=== PATIENT | female | born 1965 | race Caucasian/White ===

== ENCOUNTER → 2022-07-25 | Outpatient (CLI) | payer BC ==
[2022-07-25 18:56] LABS: HCT 44.4 % (37.2-46.3); HGB 15.5 g/dL (12.0-15.0); MCH 32.6 pg (27.0-32.0); MCHC 34.9 g/dL (32.0-37.0); MCV 93.3 fL (80.0-97.0); Mean Platelet Volume 10.2 fL (9.5-12.2); NRBC Per 100 WBC 0 /100 WBCS (0.0-0.0); Platelet Count 267 X 10*3/uL (140-440); RBC 4.76 X 10*6/uL (4.10-5.20); RDW 11.8 % (11.5-14.5); WBC 9.81 X 10*3/uL (4.50-10.00)
[2022-07-25 19:19] LABS: ALT 29 U/L (8-44); AST 26 U/L (13-35); African American GFR (CKD) 90.1 (60.0-200.0); Blood Urea Nitrogen 10.8 mg/dL (9.0-27.0); Carbon Dioxide 24.9 mmol/L (20.0-27.5); Chloride 102 mmol/L (96-109); Non-African American GFR(CKD) 77.7 (60.0-200.0); Potassium 4.4 mmol/L (3.5-5.5); Sodium 140 mmol/L (135-145)
[2022-07-26 09:18] LABS: Chol/HDL Ratio 2.56 Ratio; LDL Cholesterol,Calculated 64.8 mg/dL (0.0-131.0)
== END | disposition home or self-care (01) ==
LOC: LABPAT 07-17 08:30
PROVIDERS: ATTEND Internal Medicine
DX: Z01.812 Encounter for preprocedural laboratory examination (principal); I25.10 Atherosclerotic heart disease of native coronary artery without angina pectoris
CPT/HCPCS: 80051; 80061; 82565; 84450; 84460; 84520; 85027

== ENCOUNTER → 2022-07-25 | Outpatient (CLI) | payer BC | END | disposition home or self-care (01) | LOC: LABWHC1 07-17 08:28 | PROVIDERS: ATTEND Internal Medicine | DX: Z53.9 Procedure and treatment not carried out, unspecified reason (principal) ==

== ENCOUNTER 2022-08-01 08:56 | Day surgery (SDC) | payer BC ==
[2022-07-28 10:54] VITALS: BMI 30.7
[~2022-08-01 08:56] MED LIST: ALPRAZolam 0.25 MG TAB PO PRN; ALPRAZolam 0.5 MG TAB PO PRN; ASPIRIN 325 MG TAB PO ONE; ATORVASTATIN 80 MG TAB PO ONE; HEPARIN SODIUM,PORCINE 10,000 UNIT in SODIUM CHLORIDE 0.9% 1,000 ML IRRIGATION PRN; HEPARIN SODIUM,PORCINE 2,500 UNIT in SODIUM CHLORIDE 0.9% 250 ML IRRIGATION PRN; NITROGLYCERIN SL TABS 0.4 MG TAB SUBLINGUAL PRN; SODIUM CHLORIDE 0.9% 1,000 ML in EMPTY BAG 1 BAG IV SCH
[2022-08-01] MEDS ORDERED: ASPIRIN 325 MG TAB PO ONE (09:34)
[2022-08-01 09:42] VITALS: RESP 16; TEMP 98.1
[2022-08-01] MEDS ORDERED: VERAPAMIL 2.5 MG/ML 2 ML AMP ONE (10:18)
[2022-08-01] MEDS ORDERED: fentaNYL (PF) 50 MCG/ML 2 ML AMP ONE (10:23)
[2022-08-01] MEDS ORDERED: fentaNYL (PF) 50 MCG/ML 2 ML AMP IV ONE (10:37)
[2022-08-01] MEDS ORDERED: MIDAZOLAM 2 MG/2 ML VIAL IV ONE (10:37)
[2022-08-01] MEDS ORDERED: LIDOCAINE 1% INJ 10MG/ML (5 ML VIAL-PF) SQ ONE (10:38)
[2022-08-01] MEDS: VERAPAMIL SYRINGE (5 MG/10 ML) INTRAARTER ONE ×2 (10:41→10:44)
[2022-08-01] MEDS ORDERED: HEPARIN SODIUM 1,000 UN/ML (10ML VL) ONE (10:42)
[2022-08-01] MEDS ORDERED: HEPARIN SODIUM 1,000 UN/ML (10ML VL) IV ONE (10:47)
[2022-08-01] MEDS ORDERED: IOPAMIDOL-370 125ML BTL INJ ONE (10:53)
--- NOTE | 2022-08-01 11:06 | P.CARDCATH ---
Description of Procedure: PROCEDURES PERFORMED: Left heart catheterization, bilateral coronary angiography INDICATION: Abnormal stress test, history of CAD with PCI LAD CONSENT:I have discussed the risks, benefits and alternative therapies for the above-mentioned procedure and for both sedation/analgesia as well as necessary blood product administration, if indicated, as they pertain to this patient. The patient has indicated understanding and acceptance of the risks and procedures discussed. PROCEDURE: After the risks, benefits and alternatives of the above mentioned procedure explained in detail with the patient, informed consent was obtained. Patient was taken to the catheterization lab and prepped and draped in usual fashion. 1% lidocaine was used to anesthetize the right radial artery. A 6- Turkish sheath was placed in the right radial artery using modified Seldinger technique. Left coronary angiography was performed with a 5-Turkish JL 3.5 catheter and right coronary angiography was performed with a 5-Turkish JR5 catheter in various views. A 5-Turkish FR5 catheter was inserted into the left ventricle and pressure measurements were obtained. The right radial sheath was removed and a TR band was placed with hemostasis achieved. The patient tolerated the procedure well. Patient was transported back to the post catheterization holding area in stable condition. Conscious Sedation: Patient was monitored under the direct supervision of vision of myself for conscious sedation using Versed and fentanyl for a total duration of 18 minutes HEMODYNAMICS: Aorta: 148/84 LV: 145/7, LVEDP 21 SELECTIVE CORONARY ARTERIOGRAPHY: LEFT MAIN: The left main is a large caliber vessel which bifurcates into the LAD and circumflex. There is no significant stenosis. LEFT ANTERIOR DESCENDING CORONARY ARTERY: LAD is a large caliber vessel which wraps around to the apex. There is a long segment of mid to distal LAD stents which starts just past a moderate caliber diagonal 1 branch. There is no significant stenosis however there is 20-30% mid LAD in-stent stenosis. LEFT CIRCUMFLEX CORONARY ARTERY: Left circumflex is a moderate caliber vessel without significant stenosis. RIGHT CORONARY ARTERY: The right coronary artery is a large caliber vessel which gives off a PDA and PLV branch and is the dominant vessel. There is no significant stenosis. FINAL IMPRESSION: 1. Relatively normal coronary arteries as described above other than a long mid to distal LAD stent with mild 20-30% in-stent stenosis 2. Elevated left sided filling pressures PLAN: 1. Aggressive risk factor modification per most recent ACC/AHA guidelines. 2. Follow-up in the office in 1-2 weeks.
[2022-08-01 14:44] VITALS: BP 155/83; PULSE 72
== END 2022-08-01 15:17 | disposition home or self-care (01) ==
LOC: CATHCVL 08:56
PROVIDERS: ATTEND Internal Medicine
DX: I73.9 Peripheral vascular disease, unspecified (principal); I42.9 Cardiomyopathy, unspecified; I25.10 Atherosclerotic heart disease of native coronary artery without angina pectoris; I10 Essential (primary) hypertension; E78.5 Hyperlipidemia, unspecified; Z82.49 Family history of ischemic heart disease and other diseases of the circulatory system; F17.210 Nicotine dependence, cigarettes, uncomplicated; Z79.82 Long term (current) use of aspirin; Z79.899 Other long term (current) drug therapy
CPT/HCPCS: 93458; C1769 ×2; C1894; J2250; J2001; J3010; J1644; Q9967